=== PATIENT | male | born 1965 | race Caucasian/White ===

== ENCOUNTER 2024-05-17 19:05 | Emergency (ER) | payer SELFPAY ==
[2024-05-17 19:09] VITALS: BP 146/87
[2024-05-17 19:33] LABS: % Basophils 0.2 % (0-2); % Eosinophils 1.5 % (0-6); % Immature Granulocytes 0.4 % (0-0.5); % Lymphocytes 25.6 % (20.5-51.1); % Monocytes 12.7 % (1.7-9.3); % Neutrophils 59.6 % (42.2-75.2); Absolute Eosinophils 0.1 10^3/uL (0-0.7); Absolute Lymphocytes 1.4 10^3/uL (1.2-3.4); Absolute Monocytes 0.7 10^3/uL (0.1-0.6); Absolute Neutrophils 3.2 10^3/uL (1.4-6.5); Hematocrit 36.3 % (39.0-52.0); Hemoglobin 13.3 g/dL (13.0-18.0); Mean Corp Hgb Conc. 36.6 g/dL (33.0-37.0); Mean Corpuscular Hgb 31.6 pg (27.0-31.0); Mean Corpuscular Volume 86.2 fL (80.0-94.0); Mean Platelet Volume 10.3 fL (7.4-10.4); Nucleated Red Blood Cells % 0 % (-); Platelet Count 212 10^3/uL (130-400); Red Blood Cell Count 4.21 10^6/uL (4.70-6.10); Red Cell Dist. Width 13.7 % (11.5-14.5); White Blood Cell Count 5.4 10^3/uL (4.8-10.8)
[2024-05-17 19:43] VITALS: BP 144/97
[2024-05-17 19:46] LABS: ALT (SGPT) 12 U/L (0-50); AST (SGOT) 33 U/L (17-59); Albumin 4.1 g/dl (3.5-5.0); Alkaline Phosphatase 78 U/L (38-126); Blood Urea Nitrogen 22 mg/dl (9-20); Calcium 9.5 mg/dl (8.4-10.2); Carbon Dioxide 29 mmol/L (22-30); Chloride 103 mmol/L (98-107); Glucose 93 mg/dl (70-99); Lipase 119 U/L (23-300); Potassium 4.7 mmol/L (3.5-5.1); Sodium 136 mmol/L (135-145); Total Bilirubin 0.4 mg/dl (0.2-1.3); Total Protein 6.5 g/dl (6.3-8.2); eGFR > 60.00
[2024-05-17 19:57] LABS: Troponin I < 0.012 ng/ml
[2024-05-17 20:00] VITALS: BP 119/72
[2024-05-17] MEDS: DUONEB 3 ML INH ×2 (20:20)
[2024-05-17 21:00] VITALS: BP 137/76
--- NOTE | 2024-05-17 22:20 | ED.GENMED ---
History of Present Illness
General
Chief Complaint: Cardiac Symptoms
Source: patient and significant other
Time Seen by Provider: 05/17/24 19:36
History of Present Illness
History of Present Illness:
58-year-old male who presents with pains under his ribs bilaterally. Reports has been ongoing for years. Reports that she has been ongoing since the . He states over the last several weeks it has been worse. He also reports difficulty
swallowing his food. He states he has a tough time getting down his lunch every day and has to take a long to eat. No vomiting. He does smoke. He drinks alcohol occasionally. Denies shortness of breath. No melena or hematochezia. He does not
regularly see a doctor. In the past he was on a breathing treatment but stopped taking it.
Past History
Past History
ED Past Medical History: COPD, GERD and HTN
Social History
Tobacco: Smoker
Phy Exam
Physical Exam
Physical Exam:
CONSTITUTIONAL Patient alert and oriented to person, place and time. Well-appearing. Vital signs reviewed.
HEAD atraumatic, normocephalic.
EYES eyelids normal to inspection, Pupils equally round and reactive to light, Extraocular muscles intact, Conjunctiva normal, Sclera normal.
NECK normal range of motion, Trachea midline, no jugular venous distention.
RESPIRATORY CHEST No respiratory distress noted, Chest expansion equal, wheezing bilaterally.
CARDIOVASCULAR regular rate and rhythm, Heart sounds normal.
ABDOMEN abdomen nontender, Bowel sounds normal. No distention.
BACK normal inspection, no obvious deformities
UPPER EXTREMITY range of motion normal, Motor strength normal, no cyanosis, no edema.
LOWER EXTREMITY range of motion normal, Motor strength normal, no cyanosis, no edema.
NEURO Speech normal, No focal motor deficits, [place] coma scale 15, Memory normal, Cranial Nerves intact to screening exam.
SKIN skin warm, dry, and normal in color.
PSYCHIATRIC patient oriented to person place and time, Normal affect.
Course
Orders/Labs/Results
Orders:
Orders
05/17/24 19:07
ECG [Electrocardiogram (*1)] Urgent
Reason for Study: Chest Pain
EKG- Treatment ONCE
05/17/24 19:27
Complete Blood Count/With Diff Urgent
Comprehensive Metabolic Panel Urgent
Lipase Urgent
Troponin I Urgent
05/17/24 19:54
CR Chest - 2 Views Urgent
Comment:
Reason For Exam: cp
05/17/24 20:08
Ipratropium/Albuterol Sulfate [Duoneb] 3 ml INH R NOW ONE
Ipratropium/Albuterol Sulfate [Duoneb] 3 ml INH R NOW STA
Abnormal Lab Results
05/17/24
19:27
RBC 4.21 L 10^6/uL
(4.70-6.10)
Hct 36.3 L %
(39.0-52.0)
MCH 31.6 H pg
(27.0-31.0)
Absolute Monos (auto) 0.7 H 10^3/uL
(0.1-0.6)
Monocytes % 12.7 H %
(1.7-9.3)
BUN 22 H mg/dl
(9-20)
05/17/24 19:27
05/17/24 19:27
Vital Signs
Initial and Last Documented VS:
Initial Vital Signs
Temp Pulse Resp BP Pulse Ox
98.9 F 75 20 146/87 96
05/17/24 19:09 05/17/24 19:09 05/17/24 19:09 05/17/24 19:09 05/17/24 19:09
Last Documented Vital Signs
Temp Pulse Resp BP Pulse Ox
98.9 F 68 13 144/97 98
05/17/24 19:09 05/17/24 19:45 05/17/24 19:45 05/17/24 19:43 05/17/24 19:45
MDM/Problems Addressed
MDM/Problems Addressed:
Chest pain, COPD
*Radiology
Radiology exam reviewed: radiology read reviewed and all reviewed NAD by ED Provider
*Pulse Oximetry
Patient hypoxic: no
*EKG
Interpreted by ED Provider?: Yes
Interpretation: normal
Rate: normal
Rhythm: sinus
Man: normal axis
Interval: normal interval
QRS Pattern: normal QRS
Ischemia: no ischemia
*Coordinate Measuring Machine Programmer Interpretation
Rate: normal
Interpretation: normal
Rhythm: sinus
*Critical Care Note
Total Time (30-74mins, 75-104mins- exclusive of procedures): Not Applicable
Data Reviewed
Source: patient and significant other
Prescriptions/Medications Considered But Not Given:
Consider nitroglycerin but symptoms been ongoing for a long period of time
Patient Management
Escalation/DeEscalation of care consider admission/obs:
Suspect symptoms may be GI related. Wanted to repeat troponin but patient would like to leave. EKG initial troponin negative despite symptoms for long period of time. I do suspect may be a GI etiology as the patient admits he has been having
difficulty swallowing. Will recommend follow-up with gastroenterology and PCP. I told him that he needs an endoscopy. Will initiate PPI and also offer albuterol MDI. Outpatient follow-up recommended
ED Attending Note
-
Portions of this chart may have been created with voice recognition software.� Occasional wrong word or��sound alike� substitutions may have occurred due to the inherent limitations of voice recognition software.
Discharge Plan
Departure
Patient Disposition: Home (Routine Discharge)
Date of Disposition: 05/17/24
Time of Disposition: 22:29
Patient with high blood pressure during this ER visit?: Yes
Discharge Problem:
Chest pain, Uncontrolled hypertension, GERD (gastroesophageal reflux disease), Dysphagia
Instructions: Acid reflux and GERD in adults, Chest Pain PCP Follow Up, BLOOD PRESSURE
Prescriptions:
New
albuterol sulfate 90 mcg/actuation HFA aerosol inhaler
2 inh inhalation Q4H PRN (Reason: shortness of breath or wheezing) Qty: 8.5 0RF
pantoprazole [Protonix] 40 mg tablet,delayed release (DR/EC)
40 mg PO DAILY Qty: 30 0RF
Rx Instructions:
Please take 30 minutes prior to eating or drinking anything in the morning.
Referrals:
Bella Aquino MD [Active] -
NONE,* [Family Provider] -
Barrett Gonzales DO [Non-Admitting Privileges] -
Activity Restrictions/Additional Instructions:
Please stop smoking
Please see your doctor in follow-up in the next 3 to 5 days.
In addition, is important that you follow-up with gastroenterology to have an endoscopy. Return immediately for difficulty breathing, worsening pain, fevers, vomiting or any other concerns.
Interventions
Interventions:
*Risk Screen - Suicide Last Done: 05/17/24 19:19
*General Assessment Last Done: 05/17/24 19:19
*Neglect/Abuse Screening Last Done: 05/17/24 19:19
ED- Fall Risk Assessment Last Done: 05/17/24 19:19
ED- Pulmonary Assessment Last Done: 05/17/24 19:40
ED- Cardiac Assessment Last Done: 05/17/24 19:40
Discharge Date and Time
Print Language: [place]
== END 2024-05-17 22:44 | disposition home or self-care (01) ==
LOC: EMR 19:05
PROVIDERS: Emergency Medicine; EMERGENCY PHYSICIAN Emergency Medicine
DX: R07.89 Other chest pain (principal); R13.10 Dysphagia, unspecified; K21.9 Gastro-esophageal reflux disease without esophagitis; I10 Essential (primary) hypertension; F17.200 Nicotine dependence, unspecified, uncomplicated; R03.0 Elevated blood-pressure reading, without diagnosis of hypertension
CPT/HCPCS: 99285; 94640; 71046; 80053; 83690; 84484; 85025; 93005